=== PATIENT | female | born 1975 | race Caucasian/White ===

== ENCOUNTER 2020-09-24 13:05 | Emergency (ER) | payer MEDICAID ==
[~2020-09-24] VITALS: Ht 152.4 cm; Wt 73.0 kg
[2020-09-24] MEDS ORDERED: LORAZEPAM 1MG TABLET PO ONE (14:00)
[2020-09-24 14:09] LABS: BASOPHILS % 0.5 % (0.0-2.0); EOSINOPHILS % 1.6 % (0.0-5.0); HEMATOCRIT. 32.8 % (36.0-48.0); HEMOGLOBIN. 10.6 g/dL (12.0-16.0); LYMPHOCYTES % 31.6 % (20.0-50.0); MEAN CORPUSCULAR HEMOGLOBIN 24.8 pg (28.0-32.0); MEAN CORPUSCULAR VOLUME 76.7 fL (81.0-99.0); MEAN PLATELET VOLUME 7.9 fl (7.4-10.4); MONOCYTES % 9.3 % (2.0-8.0); PLATELET 384 x1000/uL (130-400); RED BLOOD CELL COUNT 4.27 mill/uL (4.2-5.4); RED CELL DISTRIBUTION WIDTH 17.9 % (11.6-14.6)
[2020-09-24 14:16] LABS: CHLORIDE 109 mEq/L (98-107)
[2020-09-24 14:17] LABS: HCG SCREEN NEGATIVE
[2020-09-24 16:30] VITALS: BP 159/72
== END 2020-09-24 17:09 | disposition left against medical advice (07) ==
LOC: ER 13:05 → EDBEDREQ 13:53 → EDBEDREQTM 14:54 → CANRESERV 16:41 → ENRESERV 16:41 → CANBEDREQ 17:06 → ER 17:09
DX: R07.89 Other chest pain (principal); R00.2 Palpitations; Z98.890 Other specified postprocedural states
CPT/HCPCS: 36415; 71045; 76830; 76856; 80053; 81025; 83690; 83735; 83880; 84443; 84484; 84703; 85025; 93005; 99285; C1893